=== PATIENT | male | born 1985 | race Caucasian/White ===

== ENCOUNTER 2021-03-21 19:45 | Emergency (ER) | payer SELFPAY ==
[~2021-03-21] VITALS: Ht 182.9 cm; Wt 86.2 kg
[2021-03-21 19:48] VITALS: BP 114/63
--- NOTE | 2021-03-21 19:49 | NUR ---
BIB BLS to bed 09
[2021-03-21] MEDS ORDERED: KETOROLAC 60 MG/2 ML VIAL IM ONE (19:50)
--- NOTE | 2021-03-21 20:00 | NUR ---
Dr. Vasquez with pt for MSE
[2021-03-21 20:04] VITALS: BP 114/63
[2021-03-21] MEDS ORDERED: OLAN15TA1 PO (20:22)
[2021-03-21] MEDS ORDERED: IBUP-2213 PO (20:22)
--- NOTE | 2021-03-21 20:22 | NUR ---
XR at bedside.
--- NOTE | 2021-03-21 21:22 | NUR ---
d/c with VSS. d/c education given. opportunity to ask questions given and answered.rx of motrin and zyprexa given.
== END 2021-03-21 21:22 | disposition home or self-care (01) ==
LOC: MED 19:45
DX: M79.602 Pain in left arm (principal); M79.675 Pain in left toe(s); F20.9 Schizophrenia, unspecified; Z79.899 Other long term (current) drug therapy; W22.8XXA Striking against or struck by other objects, initial encounter; Y93.89 Activity, other specified; Y92.89 Other specified places as the place of occurrence of the external cause; Y99.8 Other external cause status
CPT/HCPCS: 73660; 96372; 99283; J1885